=== PATIENT | female | born 1930 | race Caucasian/White ===

== ENCOUNTER → 2016-06-30 | Outpatient (CLI) | payer MEDICARE, OTHER ==
[~2016-06-30] MED LIST: BENTYL-DPS20 MG PO; FLAGYL-DPS500 MG PO; KLONOPIN DPS0.5 MG PO
== END | disposition home or self-care (01) ==
LOC: RAD.S 10:09
DX: R13.10 Dysphagia, unspecified (principal); K22.2 Esophageal obstruction; Z85.01 Personal history of malignant neoplasm of esophagus; Z79.899 Other long term (current) drug therapy; Z95.828 Presence of other vascular implants and grafts